=== PATIENT | male | born 2000 | race Caucasian/White ===

== ENCOUNTER 2019-05-07 18:17 | Emergency (ER) | payer SELFPAY ==
[~2019-05-07] VITALS: Ht 167.6 cm; Wt 82.1 kg
[2019-05-07 18:34] VITALS: BP 147/86; Ht 167.6 cm; Wt 82.1 kg
== END 2019-05-07 20:01 | disposition home or self-care (01) ==
LOC: ED 18:17
DX: J06.9 Acute upper respiratory infection, unspecified (principal)